=== PATIENT | female | born 1955 | race Caucasian/White ===

== ENCOUNTER 2022-05-18 15:45 | Emergency (ER) | payer MEDICARE ==
[2022-05-18] MEDS ORDERED: Ketorolac Tromethamine 30 MG/ML VIAL ONE (16:19)
[2022-05-18] MEDS ORDERED: Morphine 4 MG/ML VIAL ONE (16:19)
== END 2022-05-18 18:08 | disposition home or self-care (01) ==
LOC: ERS 15:45
DX: S42.211A Unspecified displaced fracture of surgical neck of right humerus, initial encounter for closed fracture (principal); E11.9 Type 2 diabetes mellitus without complications; I10 Essential (primary) hypertension; K21.9 Gastro-esophageal reflux disease without esophagitis; W19.XXXA Unspecified fall, initial encounter; Z79.899 Other long term (current) drug therapy
CPT/HCPCS: 71045; 96374; 96375; J1885; J2270